=== PATIENT | male | born 1935 | race Caucasian/White ===

== ENCOUNTER → 2023-09-01 10:23 | Outpatient (REF) | payer MEDICARE, SELFPAY | LOC: HWRAD 10:23 | PROVIDERS: ATTENDING PHYSICIAN Internal Medicine Gastroenterology; FAMILY PHYSICIAN Family Medicine | DX: R19.4 Change in bowel habit (principal); R10.32 Left lower quadrant pain | CPT/HCPCS: 74177; Q9967 ==

== ENCOUNTER 2023-11-13 06:04 | Inpatient (IN) | payer MEDICARE, SELFPAY ==
[2023-09-24 15:48] LABS: Chloride 103 mmol/L (98-107)
[2023-09-24 15:50] LABS: ALT (SGPT) 12 U/L (0-50); AST (SGOT) 17 U/L (17-59); Albumin 3.2 g/dl (3.5-5.0); Alkaline Phosphatase 90 U/L (38-126); Blood Urea Nitrogen 19 mg/dl (9-20); Calcium 9.6 mg/dl (8.4-10.2); Carbon Dioxide 29 mmol/L (22-30); Glucose 130 mg/dl (70-99); Potassium 3.9 mmol/L (3.5-5.1); Sodium 140 mmol/L (135-145); Total Bilirubin 0.5 mg/dl (0.2-1.3); Total Protein 5.6 g/dl (6.3-8.2); eGFR > 60.00
[2023-09-24 16:13] LABS: Hematocrit 40.1 % (39.0-52.0); Hemoglobin 13.3 g/dL (13.0-18.0); Mean Corp Hgb Conc. 33.2 g/dL (33.0-37.0); Mean Corpuscular Hgb 31.8 pg (27.0-31.0); Mean Corpuscular Volume 95.9 fL (80.0-94.0); Mean Platelet Volume 9.2 fL (7.4-10.4); Platelet Count 308 10^3/uL (130-400); Red Blood Cell Count 4.18 10^6/uL (4.70-6.10); Red Cell Dist. Width 13.1 % (11.5-14.5); White Blood Cell Count 10.8 10^3/uL (4.8-10.8)
[2023-09-25 10:12] LABS: Glycohemoglobin (HgbA1c) 5.6 % (4.0-5.6)
[2023-11-13] VITALS (11 sets, daily range): BP systolic 102–143; BP diastolic 47–86; O2SAT 94; BMI 25.8
[2023-11-13] MEDS: CELEBREX 200 MG PO (06:44)
[2023-11-13] MEDS: NORMOSOL-R/PLASMALYTE-A 1000 IV ×2 (06:45→13:15)
[2023-11-13] MEDS: TYLENOL 650 MG PO ×3 (06:45→19:48)
--- NOTE | 2023-11-13 10:44 | W.PN.ORTHO ---
Today's Communication / Plan
-
D/c when clinically stable.
Assessment
.
Distal Motor Intact: Yes
Dressing:
Clean, dry and intact.
Assessment:
L knee OA s/p L TKA w/ Dr Wilson 11/13/23
DVT prophylaxis - Enteric coated ASA 81 mg PO BID x4 weeks d/t recent GI bleed, b/l venous foot pumps
HTN - + parameters - monitor BP
Bifascicular block and PAF - monitor on tele
- Continue Flecainide
DAMIAN � improved w/ weight loss - monitor O2
- IS
CKD stage 3 - minimize nephrotoxins
GERD
PUD with multiple previous GI bleeds
Crohns ileocolitis
Diverticular bleed 10/18/2023
- Continue Protonix BID
- Enteric coated baby ASA BID for DVT prophylaxis
- NO NSAIDS
TIA 02/2021 - continue ASA but at BID dosing x4 weeks for blood clot prevention
Ankylosing spondylosis, on chronic Prednisone - increase Prednisone and taper to accommodate for post-surgical pain
Lumbar radiculopathy - consider Gabapentin or Lyrica
BPH - add daily Flomax
- Monitor voids
HLD
Aortic atherosclerosis
Bladder cancer
RCC of R kidney
Ramona palsy 2020���
H/o C diff
Plan
.
Surgery / Date: L TKA w/ Dr Wilson 11/13/23
DVT Prophylaxis: Aspirin (enteric coated 81 mg PO BID )
Activity:
Out of bed.
PT/OT
Discharge Plan: Other (home w/ home PT )
Subjective
.
.:
Patient resting comfortably in PACU.
L knee pain minimal and well tolerated.
Denies any new significant complaints.
Vital Signs and Labs
.
Vital Signs and Labs:
Lab Results
09/24/23 14:40
09/24/23 14:40
Temp Pulse Resp BP Pulse Ox
97.9 F 57 16 135/60 96
11/13/23 06:31 11/13/23 06:31 11/13/23 06:31 11/13/23 06:31 11/13/23 06:31
Physical Exam
-
HEENT: No pallor, cyanosis, or jaundice. Throat clear.
NECK: Supple. No JVD.
RESPIRATORY: Lungs clear to auscultation.
CVS: S1, S2 normal. RRR.�
ABDOMEN: Soft, non-tender. No distension.
EXTREMITIES: Strength equal, no calf pain with palpation/dorsiflexion. Calves soft.
CORPORATE SCHEDULER: AOx3. No focal deficits. lift electrician grossly intact
[2023-11-13] MEDS: DILAUDID 0.25 MG IV (11:27)
--- NOTE | 2023-11-13 13:22 | PTCARENOTE ---
Patient admitted from [facility] for left total knee arthroplasty.The patient complains of only minor discomfort.Vital signs are stable.The Primaseal dressing is intact with scant drainage.Neurovascular assessment is within normal limits and ongoing.The
patient is in his bed with the call horvath in reach.
[2023-11-13] MEDS: FLOMAX 0.4 MG PO (14:12)
[2023-11-13] MEDS: ROXICODONE 10 MG PO ×2 (14:12→19:53)
[2023-11-13] MEDS: LIDOCAINE 4% PATCH 2 PATCH TOPICAL (14:13)
[2023-11-13] MEDS: ANCEF 5 IV ×2 (14:14→21:22)
--- NOTE | 2023-11-13 15:18 | W.PN.UPDATE ---
Update Note
Progress Note Update
Patient seen and examined. VSS. Pulm: nonlabored. CV: regular. Abd: benign. Ext: Calf soft. NVI distally. Able to fully extend. ROM O-80 degrees. Postop xrays as expected. Baby ASA for DVT prophylaxis. OOB with PT. Plan for discharge
home tomorrow with outpatient PT.
[2023-11-13] MEDS: DELTASONE 40 MG PO (16:04)
[2023-11-13] MEDS: TAMBOCOR 150 MG PO ×2 (16:05→21:21)
[2023-11-13] MEDS: VASOTEC PO ×2 (16:06→19:49)
[2023-11-13] MEDS: TYLENOL PO (16:07)
[2023-11-13] MEDS: COLACE 100 MG PO (19:40)
[2023-11-13] MEDS: ASPIR LOW (ENTERIC COATED) 81 MG PO (19:40)
[2023-11-13] MEDS: BACTROBAN 2% OINTMENT 1 APPLIC NASAL (19:40)
[2023-11-13] MEDS: PROTONIX 40 MG PO (19:41)
[2023-11-13] MEDS: SENOKOT 17.2 MG PO (19:41)
[2023-11-13] MEDS: LIPITOR 10 MG PO (21:22)
[2023-11-14] VITALS (7 sets, daily range): BP systolic 86–160; BP diastolic 43–80; PULSE 62–82; O2SAT 92
[2023-11-14] MEDS: TYLENOL PO ×2 (00:25→08:00)
[2023-11-14] MEDS: TYLENOL 650 MG PO ×2 (03:06→11:10)
[2023-11-14] MEDS: ROXICODONE 10 MG PO ×3 (03:06→12:31)
--- NOTE | 2023-11-14 07:59 | W.PN.ORTHO ---
Today's Communication / Plan
-
S/p left TKA 11/13/[address] Wilson.
-PT/OT to tolerance.
-Pain control with Oxycodone q 4-6 hours and Tylenol q 6 hours.
-Aspirin 81 mg PO BID for DVT prophylaxis.
-F/u in office in 2 weeks for staple removal.
-D/c home today after PT.
Assessment
.
Distal Motor Intact: Yes
Dressing:
Dressing changed to apply clean primaseal.
Assessment:
S/p left TKA 11/13/[address] Wilson.
-PT/OT to tolerance.
-Pain control with Oxycodone q 4-6 hours and Tylenol q 6 hours.
-Aspirin 81 mg PO BID for DVT prophylaxis.
-F/u in office in 2 weeks for staple removal.
-D/c home today after PT.
Plan
.
Surgery / Date: L TKA w/ Dr Wilson 11/13/23
DVT Prophylaxis: Aspirin
Activity:
Out of bed.
PT/OT
Discharge Plan: Home w/ Outpatient PT
Subjective
.
.:
Patient resting comfortably in bed. Does report pain in his left knee. Has been taking Oxycodone 10 mg which does alleviate his symptoms for about 4 hours. He is able to do SLR.
Vital Signs and Labs
.
Vital Signs and Labs:
Lab Results
09/24/23 14:40
09/24/23 14:40
Temp Pulse Resp BP Pulse Ox
99.1 F 57 15 160/78 98
11/14/23 07:19 11/14/23 07:19 11/14/23 07:19 11/14/23 07:19 11/14/23 07:19
Physical Exam
-
Left knee: Primaseal dressing intact with saturation of the entire distal portion. dressing removed to reveal no active bleeding. Hailey intact. Moderate swelling of knee. Diffuse ecchymotic changes. ROM 0-80 degrees. Calf is soft and non
tender. N/v intact distally.
[2023-11-14] MEDS: SENOKOT 17.2 MG PO (08:33)
[2023-11-14] MEDS: VASOTEC 20 MG PO (08:34)
[2023-11-14] MEDS: ASPIR LOW (ENTERIC COATED) 81 MG PO (08:34)
[2023-11-14] MEDS: FLOMAX 0.4 MG PO (08:34)
[2023-11-14] MEDS: PROTONIX 40 MG PO (08:34)
[2023-11-14] MEDS: DELTASONE 40 MG PO (08:35)
[2023-11-14] MEDS: TAMBOCOR 150 MG PO (08:35)
[2023-11-14] MEDS: COLACE 100 MG PO (08:36)
[2023-11-14] MEDS: BACTROBAN 2% OINTMENT 1 APPLIC NASAL (08:37)
[2023-11-14] MEDS: LIDOCAINE 4% PATCH 2 PATCH TOPICAL (08:37)
--- NOTE | 2023-11-14 10:17 | W.DS.TRANS ---
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
-
Discharge Instructions:
Discharge Diagnosis/Procedures L knee OA s/p L TKA w/ Dr Wilson 11/13/23
Diet Regular
Activity As tolerated,With Walker
Driving Restrictions Not until seen by your Dr
Bathing Restrictions OK to Shower
Other Services PT
Wound Care Dressing to be removed 1 week post-surgery.
Bessie to be removed at 2 week follow-up with
surgeon's office.
Instructions:
Stand-Alone Forms: Total Hip/Knee Replacement D/C
Changes to Home Medications: No
Discharge Medications:
DC Medications w/original date entered in [employer]
Magnesium Nitrate 1 tab PO DAILY 10/08/23
Osteo Bi-Flex 1 tab PO BID 10/08/23
azelastine 0.05 % eye drops 1 drp BOTH EYES DAILY 10/08/23
flecainide 150 mg tablet 150 mg PO Q12H 10/08/23
mupirocin 2 % topical ointment 1 applic topical BID 10/08/23
simvastatin 10 mg tablet 20 mg PO HS 10/08/23
vitamin B complex 1 tab PO DAILY 10/08/23
acetaminophen 325 mg tablet 650 mg (2 x 325 mg) PO Q4HWA #60 tabs 11/13/23
aspirin 81 mg tablet,delayed release 81 mg PO BID #60 tabs 11/13/23
docusate sodium 100 mg capsule 100 mg PO BID #30 caps 11/13/23
enalapril maleate 20 mg tablet 20 mg PO Q12H #1 tab 11/13/23
lidocaine 4 % topical patch 2 patch topical DAILY #15 ea 11/13/23
oxycodone 5 mg tablet 5 - 10 mg (1 - 2 x 5 mg) PO Q6H PRN moderate-severe pain #30 tabs 11/13/23
pantoprazole 40 mg tablet,delayed release 40 mg PO BID #1 tab 11/13/23
prednisone 10 mg tablet 30 mg (3 x 10 mg) PO TAPER Anti-inflammatory #10 tabs 11/13/23
prochlorperazine maleate 5 mg tablet 5 mg PO Q8HPRN PRN nausea/vomiting #30 tabs 11/13/23
sennosides 8.6 mg tablet (Senna Laxative) 17.2 mg (2 x 8.6 mg) PO BID #30 tabs 11/13/23
Home Medication Changes
Pending Results: No
--- NOTE | 2023-11-14 10:50 | CM ---
Met with pt at bedside
Pt reports he lives alone in a split-level home; no steps to enter, 4 steps to next level
No assist with adl's, independent
DME - CPAP(no longer uses), rolling walker, single point cane, quad cane, raised toilet seat, shower rails, shower chair
SNF - denies past hx
HH - past [facility]
Has ride at discharge
PCP - Margarita Sims
Pharm - [facility]
Daughter and nephews will be available to assist as needed at home
Referral for [facility] sent in [facility]
Discussed IMM
Plan - home with [facility]
f- [phone]
[2023-11-14] MEDS: NSS 250 IV (10:57)
== END 2023-11-14 16:07 | disposition home health service (06) | DRG 470 ==
LOC: 2 SOUTH 06:04
PROVIDERS: ADMITTING PHYSICIAN Orthopaedic Surgery; FAMILY PHYSICIAN Family Medicine
PROC: 0SRD0J9 Replacement of Left Knee Joint with Synthetic Substitute, Cemented, Open Approach (ICD-10-PCS; 2023-11-13)
DX: M17.12 Unilateral primary osteoarthritis, left knee (principal); I45.2 Bifascicular block; M21.062 Valgus deformity, not elsewhere classified, left knee; I12.9 Hypertensive chronic kidney disease with stage 1 through stage 4 chronic kidney disease, or unspecified chronic kidney disease; N18.30 Chronic kidney disease, stage 3 unspecified; K21.9 Gastro-esophageal reflux disease without esophagitis; I48.0 Paroxysmal atrial fibrillation; I95.81 Postprocedural hypotension; G47.33 Obstructive sleep apnea (adult) (pediatric); M45.9 Ankylosing spondylitis of unspecified sites in spine; M54.16 Radiculopathy, lumbar region; N40.0 Benign prostatic hyperplasia without lower urinary tract symptoms; E78.5 Hyperlipidemia, unspecified; I70.0 Atherosclerosis of aorta; Z85.51 Personal history of malignant neoplasm of bladder; Z85.528 Personal history of other malignant neoplasm of kidney; Z87.11 Personal history of peptic ulcer disease; Z86.73 Personal history of transient ischemic attack (TIA), and cerebral infarction without residual deficits; Z79.52 Long term (current) use of systemic steroids; Z87.19 Personal history of other diseases of the digestive system
CPT/HCPCS: 36415; 73560; 80053; 83036; 85027; 87070; 97110; 97116; 97163; 97166; 97530; 97535; C1713; C1776